=== PATIENT | male | born 1985 | race Caucasian/White ===

== ENCOUNTER 2025-11-07 22:39 | Emergency (ER) | payer OTHER ==
[~2025-11-07] VITALS: Ht 167.6 cm; Wt 65.9 kg
[2025-11-07 23:02] VITALS: TEMP 98.1
[2025-11-07 23:46] LABS: PLATELET COUNT (AUTO) 271 K/uL (150-450); RED BLOOD CELL COUNT(AUTO) 4.71 MIL/uL (4.50-5.90); RED CELL DISTRIBUTION WIDTH 13.8 % (11.5-14.5); WHITE BLOOD COUNT (AUTO) 9.7 K/uL (4.5-11.0)
[2025-11-07 23:58] LABS: CALCIUM, TOTAL 9.4 mg/dL (8.8-10.5); CREATININE 1.16 mg/dL (0.60-1.30); GLOMERULAR FILTR. RATE CALC > 60 mL/min (>60); GLUCOSE,RANDOM 95 mg/dL (70-110); SODIUM SERUM 139 mmol/L (136-145); UREA NITROGEN, BLOOD 21 mg/dL (7-18)
[2025-11-08 00:02] LABS: ASPARTATE AMINOTRANSFERASE 24.0 U/L (15-37); TOTAL PROTEIN, SERUM 7.8 g/dL (6.4-8.2)
[2025-11-08 00:58] LABS: TROPONIN I-HIGH SENSITIVITY 5 ng/L (<76)
[2025-11-08] MEDS: MAG HYDROX/ALUMINUM HYD/SIMETH ES 30 ML SUSPENSION UDCUP PO ONE (01:31)
[2025-11-08] MEDS: DICYCLOMINE HCL 10 MG CAPSULE PO ONE (01:31)
[2025-11-08] MEDS: ACETAMINOPHEN 500 MG TABLET PO ONE (02:32)
[2025-11-08 02:51] VITALS: BP 135/76; PULSE 88; RESP 18; O2SAT 97
[2025-11-08] MEDS ORDERED: FAMO20 PO (03:15)
== END 2025-11-08 03:22 | disposition home or self-care (01) ==
LOC: EMS 22:49
DX: K21.9 Gastro-esophageal reflux disease without esophagitis (principal); R10.13 Epigastric pain; R11.10 Vomiting, unspecified
CPT/HCPCS: 99284; 80048; 80076; 83690; 84484; 85025; 36415; 93005; G0480